=== PATIENT | female | born 1955 ===

== ENCOUNTER 2018-09-23 16:09 | Outpatient (REF) | payer OTHER, SELFPAY | END 2018-09-23 16:29 | LOC: NCHCN 16:09 | PROVIDERS: Visit Provider Family Medicine | DX: R30.9 Painful micturition, unspecified (principal) | CPT/HCPCS: 87086 ==

== ENCOUNTER 2023-10-14 18:28 | Outpatient (REF) | payer MEDICARE, OTHER, SELFPAY ==
[2023-10-14 21:35] LABS: Bilirubin Negative (Negative); Blood Negative (Negative); Clarity Clear (Clear); Glucose Negative (Negative); Ketones Negative (Negative); Leukocyte Esterase Negative (Negative); Nitrite Negative (Negative); Specific Gravity 1.025 (1.005-1.025); Urobilinogen 0.2 mg/dL (Up to 0.2)
== END 2023-10-14 18:29 | disposition home or self-care (01) ==
LOC: NCHCN 18:28
PROVIDERS: Visit Provider Nurse Practitioner Family
DX: R10.30 Lower abdominal pain, unspecified (principal)
CPT/HCPCS: 81003